=== PATIENT | male | born 1965 | race African-American/Black ===

== ENCOUNTER → 2017-02-06 | Outpatient (CLI) | payer OTHER ==
--- NOTE | 2017-02-06 15:51 | RAD ---
3 view cervical spine 02/06/2017. Clinical indication: Recent neck pain with no focal injury. Comparison: None. Findings: Normal cervical spine alignment to inferior aspect of C7, blows limited by overlying soft tissues. Vertebral body heights are maintained. There is mild cervical disc degeneration at C4-C5 and C5-C6 with disc space narrowing and marginal osteophyte formation no significant prevertebral soft tissue thickening. Impression: Mild cervical disc degeneration at C4-C5 and C5-C6.
--- NOTE | 2017-02-06 15:54 | RAD ---
L-spine 3 views 02/06/2017 Indication: Two-month history of low back pain. Comparison: CT abdomen and pelvis 01/03/2016. Findings: There are 5 lumbar type vertebral bodies with the first nonrib-bearing considered L1 for the purposes of this dictation. No acute lumbar spine fracture or subluxation. Vertebral body heights are maintained. There is mild lumbar disc degeneration at L3-L4 with disc space narrowing and marginal osteophyte formation. Impression: 1. Mild L3-L4 disc degeneration. 2. Normal lumbar alignment.
== END | disposition home or self-care (01) ==
LOC: RAD 15:14
PROVIDERS: ATTEND Family Medicine
DX: M54.2 Cervicalgia (principal); M54.5 Low back pain; M51.36 Other intervertebral disc degeneration, lumbar region
CPT/HCPCS: 72040; 72100

== ENCOUNTER → 2017-04-17 | Outpatient (CLI) | payer OTHER ==
--- NOTE | 2017-04-17 10:39 | RAD ---
MR of the left shoulder Indication: Left shoulder pain for 2 months after lifting injury. Arthroscopic surgery 20 years ago. Technique: Standard multiplanar sequences are obtained. Findings: Acromioclavicular joint: Mild degenerative disease with small undersurface osteophytes. Rotator cuff: Postsurgical susceptibility changes result in artifact in this area. This is greatest at the anterior supraspinatus tendon footprint, where there is also some heterogeneous fluid signal. There is likely some partial tearing at the anterior supraspinatus footprint, but no convincing evidence of a through and through fluid-filled rupture. No significant subdeltoid bursal fluid. There is subscapularis tendinosis with partial tearing. Glenohumeral cartilage: Mild chondromalacia. Small marginal osteophytes. Fluid: No significant joint effusion. Labrum: Mild signal at the posterior superior labrum compatible with a small tear. Biceps tendon: Mild proximal tendinosis. Bones: No lesion or acute fracture. Soft tissue: No acute findings. Impression: 1. Posterior superior labral tear. 2. Rotator cuff is partially obscured by surgical artifact. Suspect partial tearing at the anterior supraspinatus tendon footprint, and at the subscapularis tendon. 3. Primary osteoarthritis. 4. Biceps tendinosis. Electronically signed by: Fernie Grewal MD (04/17/2017 10:35 AM) [facility]
== END | disposition home or self-care (01) ==
LOC: MRI 08:04
PROVIDERS: ATTEND Family Medicine
DX: S43.432A Superior glenoid labrum lesion of left shoulder, initial encounter (principal); M19.012 Primary osteoarthritis, left shoulder; X58.XXXA Exposure to other specified factors, initial encounter; Y93.89 Activity, other specified; Y92.89 Other specified places as the place of occurrence of the external cause; Y99.8 Other external cause status
CPT/HCPCS: 73221

== ENCOUNTER 2017-09-23 06:05 | Day surgery (SDC) | payer OTHER ==
[~2017-09-23 06:05] MED LIST: BUPIVACAINE MPF 0.5% 30 ML VIAL.; EPINEPHrine VIAL 30 MG/30 ML VIAL; LIDOCAINE 1% PF 30 ML VIAL.
[2017-09-23] MEDS ORDERED: ROPIVacaine 0.5% PF 20 ML VIAL. (06:53)
[2017-09-23] MEDS ORDERED: ONDANSETRON PF 4 MG/2 ML VIAL. IV (07:00)
[2017-09-23] MEDS: IV RINGERS,LACTATED 1000ML 1,000 ML IV (07:00)
[2017-09-23] MEDS ORDERED: MORPHINE SULFATE 2 MG/ML DISP.SYRIN. IV (07:00)
[2017-09-23] MEDS ORDERED: ceFAZolin 2GM PREMIX 2 GM/50 ML BAG IV (07:00)
[2017-09-23] MEDS ORDERED: PROCHLORPERAZINE 10 MG/2 ML VIAL. IV (07:00)
[2017-09-23] MEDS ORDERED: LIDOCAINE 1% PF 2 ML VIAL. ID (07:00)
[2017-09-23] MEDS ORDERED: fentaNYL PF VIAL 100 MCG/2 ML VIAL IV (07:00)
[2017-09-23] MEDS ORDERED: ONDANSETRON PF 4 MG/2 ML VIAL. (07:01)
[2017-09-23] MEDS ORDERED: DEXAMETHASONE SOD PHOS 20 MG/5 ML VIAL. (07:01)
[2017-09-23] MEDS ORDERED: PROPOFOL 20 ML IV ×2 (07:01→08:02)
[2017-09-23] MEDS ORDERED: fentaNYL PF VIAL 100 MCG/2 ML VIAL ×3 (07:01→09:33)
[2017-09-23] MEDS ORDERED: LIDOCAINE 1% PF 5 ML VIAL. (07:01)
[2017-09-23] MEDS ORDERED: MIDAZOLAM HCL/PF 2 MG/2 ML VIAL. (07:02)
[2017-09-23] MEDS ORDERED: ROCURONIUM 50 MG/5 ML VIAL. (07:05)
[2017-09-23] MEDS ORDERED: PHENYLEPHRINE 10 MG/ML VIAL. (07:06)
[2017-09-23] MEDS ORDERED: GLYCOPYRROLATE 1 MG/5 ML VIAL. (07:45)
[2017-09-23] MEDS: EPINEPHrine VIAL 30 MG/30 ML VIAL IM (07:52)
[2017-09-23] MEDS: BUPIVACAINE MPF 0.5% 30 ML VIAL. IJ (07:52)
[2017-09-23] MEDS: LIDOCAINE 1% PF 30 ML VIAL. INJ (07:52)
[2017-09-23] MEDS ORDERED: ESMOLOL 100 MG/10 ML VIAL. IV (08:05)
[2017-09-23] MEDS ORDERED: NEOSTIGMINE 10 MG/10 ML VIAL. (08:36)
[2017-09-23] MEDS ORDERED: SEVOFLURANE 61 TO 120 MINUTES. IH (08:39)
[2017-09-23] MEDS ORDERED: PROCHLORPERAZINE 10 MG/2 ML VIAL. (09:20)
[2017-09-23] MEDS: fentaNYL PF VIAL 100 MCG/2 ML VIAL IV (09:44)
[2017-09-23] MEDS ORDERED: oxyCODONE/APAP 5/325 1 TAB TABLET PO (09:45)
== END 2017-09-23 10:43 | disposition home or self-care (01) ==
LOC: SURG 06:05
DX: M75.102 Unspecified rotator cuff tear or rupture of left shoulder, not specified as traumatic (principal); I10 Essential (primary) hypertension; K21.9 Gastro-esophageal reflux disease without esophagitis; Z88.8 Allergy status to other drugs, medicaments and biological substances
CPT/HCPCS: 29827; C1782; J0171; J0690; J0780; J1100; J2250; J2405; J2704; J2710; J2795; J3010; J3490

== ENCOUNTER → 2018-03-05 | Outpatient (CLI) | payer OTHER ==
[2017-09-23 10:30] VITALS: BP 129/78
[~2018-03-05] MED LIST changes: +BUPIVACAINE MPF 0.5% 10 ML VIAL for KCIC. IM ONE; -BUPIVACAINE MPF 0.5% 30 ML VIAL.; +DOCU-109 PO; -EPINEPHrine VIAL 30 MG/30 ML VIAL; +IBUP-1027 PO; +IOHEXOL 300 MG/ML 50 ML VIAL. INT ART ONE; +LIDOCAINE 1% Multi-Dose 20 ML VIAL. IM ONE; -LIDOCAINE 1% PF 30 ML VIAL.; +LISI10TA2 PO; +ONDA8TAB12 PO; +OXYC-323 PO; +methylPREDNISolone ACETATE 40 MG/ML VIAL. INT ART ONE
--- NOTE | 2018-03-05 14:37 | KCIC ---
Therapeutic left bicipital groove injection using fluoroscopic guidance. HISTORY: Pain. TECHNIQUE The procedure was explained to the patient as were potential risks, including among others infection, bleeding or allergic reaction. All questions were answered. Informed written consent was obtained. The anterior shoulder was prepped and draped in the usual sterile manner. Following administration of local anesthetic, a 22-gauge needle was advanced to the bicipital groove without difficulty. Following negative aspiration, a mixture of 1 cc (40 mg) Depo-Medrol, and 1 cc 0.5% Marcaine were injected without difficulty. The needle was removed. There was good hemostasis at the injection site. The patient left in stable condition without immediate complication. Patient was advised as to potential complications, and in such event to contact his physician or the emergency room. A single spot image is obtained. FLUOROSCOPY TIME: 51 seconds Electronically signed by: Fernie Grewal MD (03/05/2018 2:34 PM) [id number]
== END | disposition home or self-care (01) ==
LOC: KCIC 10:17
PROVIDERS: ATTEND Orthopaedic Surgery Sports Medicine
DX: M25.512 Pain in left shoulder (principal); E78.00 Pure hypercholesterolemia, unspecified; I10 Essential (primary) hypertension; Z98.890 Other specified postprocedural states; Z79.899 Other long term (current) drug therapy; K21.9 Gastro-esophageal reflux disease without esophagitis; Z88.8 Allergy status to other drugs, medicaments and biological substances
CPT/HCPCS: 20610; 77002; J1030; Q9967

== ENCOUNTER → 2020-09-19 | Outpatient (CLI) | payer BC ==
[2017-09-23 10:30] VITALS: BP 129/78
[~2020-09-19] MED LIST changes: -BUPIVACAINE MPF 0.5% 10 ML VIAL for KCIC. IM ONE; -IOHEXOL 300 MG/ML 50 ML VIAL. INT ART ONE; -LIDOCAINE 1% Multi-Dose 20 ML VIAL. IM ONE; +LISI10TA16 PO; -LISI10TA2 PO; -OXYC-323 PO; +OXYC1TAB15 PO; -methylPREDNISolone ACETATE 40 MG/ML VIAL. INT ART ONE
--- NOTE | 2020-09-19 15:27 | KCIC ---
EXAM: CT coronary artery calcium screening; radiologist over read. HISTORY: Coronary artery calcium screening. TECHNIQUE: Computed tomographic images of the chest were obtained without contrast. Multiplanar refor matting was performed. *One or more of the following individualized dose reduction techniques were utilized for this examina tion: 1. Automated exposure control. 2. Adjustment of the mA and/or kV according to patient size. 3. Use of iterative reconstruction technique. COMPARISON: None. FINDINGS: There is no infiltrate, pleural effusion or pneumothorax. There is no suspicious pulmonary nodule. The heart is normal in size. The visualized aorta is normal in caliber. There are calcified r ight paratracheal and hilar granulomas. There is no suspicious osseous lesion or acute finding involv ing the visualized upper abdomen. Coronary artery calcium score: 0. IMPRESSION: Coronary calcium score of 0. No significant incidental thoracic finding. Electronically signed by: Esperanza Mcgill MD (09/19/2020 3:25 PM) [id number]
--- NOTE | 2020-09-19 15:35 | KCIC ---
EXAM: Lower extremity arterial Doppler sonogram with ankle-brachial indices (VICKI). HISTORY: Pain. Atherosclerosis. TECHNIQUE: Doppler sonographic evaluation of the lower extremities was performed and pressure reading s were assessed. FINDINGS: Right brachial pressure: 133 mmHg Left brachial pressure: 147 mmHg Right ankle pressure (dorsalis pedis): 137 mmHg Right ankle pressure (posterior tibial): 132 mmHg Right VICKI: 0.93 Left ankle pressure (dorsalis pedis): 133 mmHg Left ankle pressure (posterior tibial): 135 mmHg Left VICKI: 0.92 IMPRESSION: Normal bilateral ankle brachial indices. Electronically signed by: Esperanza Mcgill MD (09/19/2020 3:33 PM) [id number]
== END ==
LOC: KCIC US 14:56
PROVIDERS: ATTEND Family Medicine
DX: Z13.6 Encounter for screening for cardiovascular disorders (principal); M79.604 Pain in right leg; M79.605 Pain in left leg
CPT/HCPCS: 75571; 93922

== ENCOUNTER → 2021-10-10 | Outpatient (CLI) | payer OTHER ==
[2017-09-23 10:30] VITALS: BP 129/78
--- NOTE | 2021-10-10 16:10 | KCIC ---
EXAM: CT coronary artery calcium screening; radiologist over read. HISTORY: Coronary vascular screening. TECHNIQUE: Computed tomographic images of the chest were obtained without contrast. Multiplanar refor matting was performed. *One or more of the following individualized dose reduction techniques were utilized for this examina tion: 1. Automated exposure control. 2. Adjustment of the mA and/or kV according to patient size. 3. Use of iterative reconstruction technique. COMPARISON: None. FINDINGS: The heart is normal in size. The aorta is normal in caliber. There is no coronary artery ca lcification. There are calcified right hilar granulomas. There is no infiltrate, pleural effusion or pneumothorax. There is no acute finding involving the upper abdomen or osseous structures. Coronary artery calcium score: 0. IMPRESSION: 1. No coronary artery calcification. Coronary artery calcium score of 0. 2. No significant incidental thoracic finding. Electronically signed by: Esperanza Mcgill MD (10/10/2021 4:07 PM) [facility]
== END ==
LOC: KCIC CT 15:16
PROVIDERS: ATTEND Family Medicine
DX: Z13.6 Encounter for screening for cardiovascular disorders (principal); J84.10 Pulmonary fibrosis, unspecified
CPT/HCPCS: 75571